=== PATIENT | female | born 1960 | race Caucasian/White ===

== ENCOUNTER 2023-02-21 06:11 | Day surgery (SDC) | payer BC ==
[2023-02-19 10:52] LABS: BASOPHILS % (AUTO) 0.8 % (0.0-5.0); EOSINOPHILS % (AUTO) 2.7 % (0.0-8.0); HEMATOCRIT 42.3 % (36-48); LYMPHOCYTES % (AUTO) 35.2 % (21.0-51.0); MEAN CORPUSCULAR HEMOGLOBIN 30.7 pg (27.0-33.0); MEAN CORPUSCULAR HGB CONC 33.6 g/dL (32.0-36.0); MEAN CORPUSCULAR VOLUME 91.6 fL (79-99); MONOCYTES % (AUTO) 12.5 % (3.0-13.0); NEUTROPHILS % (AUTO) 48.5 % (40.0-77.0); PLATELET COUNT (AUTO) 304 K/uL (130-400); RED BLOOD CELL COUNT(AUTO) 4.62 MIL/uL (4.00-5.50); RED CELL DISTRIBUTION WIDTH 12.7 % (11.0-15.5); WHITE BLOOD COUNT (AUTO) 6.4 K/uL (4.8-10.8)
[2023-02-19 11:03] LABS: ALBUMIN 3.7 g/dL (3.5-5.0); CREATININE 0.8 mg/dL (0.5-1.5); CRP QUANTITATIVE 11.9 mg/L (0.00-9.0); POTASSIUM 3.8 mmol/L (3.5-5.1)
[2023-02-19 11:08] VITALS: BP 158/82
[2023-02-21] VITALS (17 sets, daily range): BP systolic 123–169; BP diastolic 66–89
[~2023-02-21] VITALS: Ht 162.6 cm; Wt 82.6 kg
[~2023-02-21 06:11] MED LIST: AEC81 PO; FLUT16H NASAL; HYDR12.54 PO; LEVO5TAB13 PO; LORA10CA PO; LOSA25TA41 PO; MELO-108 PO; METO100T14 PO; MONT-39 PO; OMEP40CA21 PO; VITAD50000 PO
[2023-02-21] MEDS ORDERED: CEFAZOLIN SODIUM 2 GM VIAL ONE (06:14)
[2023-02-21] MEDS ORDERED: LACTATED RINGERS 1000ML 1,000 ML IV ONE (06:14)
[2023-02-21] MEDS ORDERED: FAMOTIDINE 20MG VIAL IV ONE (06:57)
[2023-02-21] MEDS ORDERED: BUPIVACAINE/PF 0.25% 30ML VIAL IJ ONE ×2 (06:58→07:55)
[2023-02-21] MEDS ORDERED: LIDOCAINE PF 100MG/5ML (2%) SYRINGE 5ML ONE (07:01)
[2023-02-21] MEDS ORDERED: PROPOFOL 10 MG/ML 20ML VIAL IV ONE ×2 (07:02→08:02)
[2023-02-21] MEDS ORDERED: MIDAZOLAM HCL 1 MG/ML 2ML VIAL ONE (07:02)
[2023-02-21] MEDS ORDERED: ROCURONIUM 10MG/1ML SYR 10 MG/ML ML ONE (07:02)
[2023-02-21] MEDS ORDERED: FENTANYL CITRATE PF 50 MCG/1 ML 2ML VIAL ONE ×2 (07:02→09:30)
[2023-02-21] MEDS ORDERED: GLYCOPYRROLATE 1 MG/5 ML SYRINGE ONE (07:02)
[2023-02-21] MEDS ORDERED: PHENYLEPHRINE HCL 10 MG/ML 1ML VIAL IV ONE (07:02)
[2023-02-21] MEDS ORDERED: ONDANSETRON 4MG INJ ONE ×3 (07:20→09:30)
[2023-02-21] MEDS ORDERED: CEFAZOLIN SODIUM 2 GM VIAL IVPB ONE (07:36)
[2023-02-21] MEDS ORDERED: DiphenhydrAMINE HCL 50 MG/ML VIAL ONE (07:41)
[2023-02-21] MEDS ORDERED: NEOSTIGMINE 5MG/5ML SYR IV ONE (08:42)
[2023-02-21] MEDS ORDERED: TRAM50TA4 PO (08:57)
== END 2023-02-21 11:45 | disposition home or self-care (01) ==
LOC: DAH 06:11
PROVIDERS: ATTEND Student in an Organized Health Care Education/Training Program
DX: M23.42 Loose body in knee, left knee (principal); Z20.822 Contact with and (suspected) exposure to COVID-19; M17.12 Unilateral primary osteoarthritis, left knee; M94.262 Chondromalacia, left knee; M65.862 Other synovitis and tenosynovitis, left lower leg; I10 Essential (primary) hypertension; K21.9 Gastro-esophageal reflux disease without esophagitis; F17.210 Nicotine dependence, cigarettes, uncomplicated; Z88.6 Allergy status to analgesic agent; Z90.710 Acquired absence of both cervix and uterus; Z98.890 Other specified postprocedural states; Z79.82 Long term (current) use of aspirin; Z79.899 Other long term (current) drug therapy; Z82.49 Family history of ischemic heart disease and other diseases of the circulatory system; Z83.3 Family history of diabetes mellitus; Z80.51 Family history of malignant neoplasm of kidney; Z80.41 Family history of malignant neoplasm of ovary; Z80.9 Family history of malignant neoplasm, unspecified; Z79.01 Long term (current) use of anticoagulants
CPT/HCPCS: 87426; 84134; 36415; 80048; 85025; 86140; 82040; 29877; A4663; A4649; J7120; J1200; J3490 ×4; J3010 ×2; J2710; J2001; J2250; J2704 ×2; J2405 ×3; J2370; J0690 ×2; A6223; A5120; A4215; A4223; A4222; A4221

== ENCOUNTER → 2023-10-17 | Outpatient (CLI) | payer BC ==
[~2023-10-17] MED LIST changes: +IOHEXOL 350 MG/ML 100ML INFUS..BTL IV ONE; +TRAM50TA4 PO
== END | disposition home or self-care (01) ==
LOC: RAH 10:21
PROVIDERS: ATTEND Internal Medicine Cardiovascular Disease
DX: R06.02 Shortness of breath (principal)
CPT/HCPCS: 75574; Q9967